=== PATIENT | male | born 1960 | race Asian ===

== ENCOUNTER 2021-03-29 06:05 | Day surgery (SDC) | payer OTHER, SELFPAY ==
[~2021-03-29] VITALS: Ht 152.4 cm; Wt 72.6 kg
== END 2021-03-29 08:00 | disposition home or self-care (01) ==
LOC: MDS 06:05 → MMU 06:06 → MDS 08:00
PROVIDERS: ATTEND Internal Medicine Gastroenterology
DX: R14.3 Flatulence (principal); K29.60 Other gastritis without bleeding; B96.81 Helicobacter pylori [H. pylori] as the cause of diseases classified elsewhere; Z87.891 Personal history of nicotine dependence; Z79.899 Other long term (current) drug therapy; Z20.822 Contact with and (suspected) exposure to COVID-19
CPT/HCPCS: 43239; U0003